=== PATIENT | male | born 1990 | race Caucasian/White ===

== ENCOUNTER 2017-08-04 19:49 | Inpatient (IN) | payer OTHER ==
[~2017-08-04] VITALS: Ht 170.2 cm; Wt 106.5 kg
[~2017-08-04 19:49] MED LIST: HUMIRA20 MG/0.4 SC; MONTELUKAST SOD10 MG PO; PANTOPRAZOLE SO40 MG PO; PENTASA500 MG PO; VITAMIN D5000 UNIT PO
[2017-08-04] MEDS ORDERED: KEFLEX500 MG PO ×2 (19:51→22:32)
[2017-08-04 20:44] LABS: HEMATOCRIT 37.7 % (38.0-50.0); MCH 24.5 PG (29.0-34.0); MCHC 30.8 G/DL (30.0-36.0); MCV 79.7 FL (86-99); PLATELET COUNT 185 K/uL (156-360); RBC DIS.WIDTH-CV 14.6 % (11.8-14.6); RBC DIS.WIDTH-SD 41.8 % (39-53); RED BLOOD COUNT 4.73 M/uL (4.00-5.50); WHITE BLOOD COUNT 6.3 K/uL (4.1-10.2)
[2017-08-04 21:15] LABS: CHLORIDE 109 mEq/L (99-109); POTASSIUM 3.6 mEq/L (3.7-5.4); SODIUM 138 mEq/L (136-147)
[2017-08-04 21:17] LABS: GLUCOSE 93 mg/dL (70-99)
[2017-08-04 21:18] LABS: ANION GAP 6 MEQ/L (2-14)
[2017-08-04 21:19] LABS: TOTAL BILIRUBIN 1.5 mg/dL (0.0-1.0)
[2017-08-04 21:20] LABS: ALKALINE PHOSPHATASE 63 IU/L (3-129)
[2017-08-04 21:21] LABS: GFR ESTIMATE (CALCULATED) > 59 mL/min/
[2017-08-04 21:22] LABS: UREA NITROGEN (BUN) 6 mg/dL (9-23)
[2017-08-04] MEDS ORDERED: STELARA90 MG/1 ML SC (22:33)
[2017-08-05] VITALS (8 sets, daily range): BP systolic 116–143; BP diastolic 66–82
[2017-08-05 16:40] LABS: METH RESISTANT S AUREUS PCR NEGATIVE (NEGATIVE)
[2017-08-05 16:44] LABS: PROBE CHECK PASS; SPECIMEN PROCESSING CONTROL PASS
[2017-08-06 07:32] VITALS: BP 156/79
[2017-08-06 15:24] VITALS: BP 165/96
[2017-08-06 23:36] VITALS: BP 137/86
[2017-08-07 06:12] LABS: GFR ESTIMATE (CALCULATED) > 59 mL/min/
[2017-08-07 07:56] VITALS: BP 132/78
[2017-08-07 11:44] VITALS: BP 142/78; BP 147/77
[2017-08-07 14:48] VITALS: BP 145/97
[2017-08-07 23:45] VITALS: BP 144/92
[2017-08-08 06:23] LABS: HEMATOCRIT 34.5 % (38.0-50.0); MCH 24.4 PG (29.0-34.0); MCHC 30.4 G/DL (30.0-36.0); MEAN PLAT.VOLUME 11.5 uM^3 (9.0-12.4); PLATELET COUNT 175 K/uL (156-360); RBC DIS.WIDTH-CV 14.4 % (11.8-14.6); RBC DIS.WIDTH-SD 41.4 % (39-53); RED BLOOD COUNT 4.31 M/uL (4.00-5.50)
[2017-08-08 06:43] LABS: ANION GAP 8 MEQ/L (2-14); CHLORIDE 107 MEQ/L (99-109); POTASSIUM 4.1 MEQ/L (3.7-5.4); SAMPLE HEMOLYSIS CHECK 0; SAMPLE ICTERIC CHECK 0; SAMPLE LIPEMIA CHECK 0; SODIUM 141 MEQ/L (136-147); TOTAL BILIRUBIN 0.9 MG/DL (0.0-1.0)
[2017-08-08 06:49] LABS: ALKALINE PHOSPHATASE 57 IU/L (3-129); GFR ESTIMATE (CALCULATED) > 59 mL/min/; GLUCOSE 89 mg/dL (70-99); UREA NITROGEN (BUN) 5 mg/dL (9-23)
[2017-08-08 07:46] VITALS: BP 158/73
[2017-08-08 17:08] VITALS: BP 139/94
[2017-08-09 07:58] VITALS: BP 134/80
== END 2017-08-09 13:15 | disposition home or self-care (01) | DRG 603 ==
LOC: EME 19:49 → ENRESERV 22:45 → 3EAST 22:49 → EDOF 22:49 → ENRESERV 22:56 → 3EAST 23:52
PROVIDERS: Internal Medicine; Internal Medicine Infectious Disease; Physician Assistant
DX: L03.316 Cellulitis of umbilicus (principal); S31.105A Unspecified open wound of abdominal wall, periumbilic region without penetration into peritoneal cavity, initial encounter; K50.90 Crohn's disease, unspecified, without complications; B95.61 Methicillin susceptible Staphylococcus aureus infection as the cause of diseases classified elsewhere; E87.6 Hypokalemia; D50.9 Iron deficiency anemia, unspecified; F84.5 Asperger's syndrome; E66.9 Obesity, unspecified; Z68.36 Body mass index [BMI] 36.0-36.9, adult; Z90.49 Acquired absence of other specified parts of digestive tract; Z23 Encounter for immunization
CPT/HCPCS: 74177; 80053; 80202; 82565; 85027; 87070; 87075; 87077; 87147; 87186; 87205; 87641; 90686; 99281; 99284; J0690; J1650; J1885; J2543; J3370; J7030; J7050; Q0169